=== PATIENT | female | born 1940 | race Caucasian/White ===

== ENCOUNTER 2017-11-24 14:22 | Outpatient (CLI) | payer MEDICARE, OTHER ==
[~2017-11-24 14:22] MED LIST: MECL12.584 PO
== END 2017-11-24 23:59 | disposition home or self-care (01) ==
LOC: RAD 14:22
PROVIDERS: ATTEND Internal Medicine Gastroenterology
DX: R13.12 Dysphagia, oropharyngeal phase (principal); I10 Essential (primary) hypertension; Z85.828 Personal history of other malignant neoplasm of skin
CPT/HCPCS: 74230

== ENCOUNTER 2020-04-13 11:47 | Emergency (ER) | payer MEDICARE, OTHER ==
[~2020-04-13] VITALS: Ht 167.6 cm; Wt 57.7 kg
[~2020-04-13 11:47] MED LIST changes: +MECL-226 PO; -MECL12.584 PO
[2020-04-13] MEDS ORDERED: LIDOcaine/epinephrine/tetracaine TOPICAL sol 3 ML syringe TOP ONE (12:55)
[2020-04-13] MEDS ORDERED: LIDOcaine 4% (40 mg/ml) topical solution 50ml TP ONE (12:55)
[2020-04-13 14:28] VITALS: BP 159/76
[2020-04-13] MEDS ORDERED: CHLO473M3 PO (14:39)
== END 2020-04-13 15:15 | disposition home or self-care (01) ==
LOC: ER 11:48
DX: S01.21XA Laceration without foreign body of nose, initial encounter (principal); R04.0 Epistaxis; Z88.0 Allergy status to penicillin; Z79.899 Other long term (current) drug therapy; W19.XXXA Unspecified fall, initial encounter; Y93.89 Activity, other specified; Y92.89 Other specified places as the place of occurrence of the external cause; Y99.8 Other external cause status
CPT/HCPCS: 12013; 99284